=== PATIENT | female | born 2000 | race Caucasian/White ===

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

== ENCOUNTER → 2022-01-03 | Outpatient (CLI) | payer OTHER ==
[~2022-01-03] MED LIST changes: +KETO10TAB PO
== END ==
LOC: M RAD 13:44
PROVIDERS: ATTEND Physician Assistant
DX: E04.1 Nontoxic single thyroid nodule (principal)

== ENCOUNTER → 2022-01-09 | Outpatient (CLI) | payer OTHER ==
[2022-01-09 11:53] LABS: FREE T4 1.02 NG/DL (0.78-1.33); THYROID STIMULATING HORMONE 0.776 uIU/ML (0.463-3.98)
== END ==
LOC: M LAB 10:36
PROVIDERS: ATTEND Physician Assistant
DX: E04.1 Nontoxic single thyroid nodule (principal)

== ENCOUNTER → 2022-02-26 | Outpatient (REF) | payer OTHER | LOC: M LAB REF 17:09 | PROVIDERS: ATTEND Internal Medicine Endocrinology, Diabetes & Metabolism | DX: E04.2 Nontoxic multinodular goiter (principal) ==